=== PATIENT | male | born 1940 | race Two or more races ===

== ENCOUNTER → 2021-05-14 | Outpatient (REF) | payer MEDICARE, OTHER | LOC: M LAB REF 08:43 | PROVIDERS: ATTEND Urology | DX: E31.9 Polyglandular dysfunction, unspecified (principal); E29.1 Testicular hypofunction; R39.12 Poor urinary stream ==

== ENCOUNTER → 2021-07-08 | Outpatient (REF) | payer MEDICARE, OTHER | LOC: M LAB REF 13:36 | PROVIDERS: ATTEND Urology | DX: R31.9 Hematuria, unspecified (principal); E29.1 Testicular hypofunction; R39.12 Poor urinary stream ==

== ENCOUNTER → 2024-09-05 | Outpatient (CLI) | payer MEDICARE, OTHER | LOC: M RAD 10:39 | PROVIDERS: ATTEND Otolaryngology | DX: J32.0 Chronic maxillary sinusitis (principal) ==

== ENCOUNTER → 2024-09-13 | Outpatient (REF) | LOC: M LABCFH 15:00 | DX: N39.0 Urinary tract infection, site not specified (principal) ==

== ENCOUNTER → 2024-10-13 | Outpatient (REF) | LOC: M CFLAB 13:16 | DX: N39.0 Urinary tract infection, site not specified (principal) ==